=== PATIENT | male | born 2000 | race Asian ===

== ENCOUNTER 2023-08-30 12:24 | Emergency (ER) | payer OTHER ==
[~2023-08-30] VITALS: Ht 177.8 cm; Wt 99.3 kg
[2023-08-30] MEDS ORDERED: KETOROLAC 30 MG/ML 1ML VIAL IV ONE (13:00)
[2023-08-30] MEDS ORDERED: NS 1,000 ML IV ONE (13:00)
[2023-08-30 13:27] VITALS: TEMP 99.2
[2023-08-30 13:29] LABS: BASO # 0.1 10^3/uL (0.0-0.2); BASO % 0.7 % (0.0-1.0); EOS # 0.4 10^3/uL (0.0-0.5); EOS % 5.5 % (0.0-3.0); HEMOGLOBIN 15.2 g/dl (13.5-17.5); LYMPH # 2.1 10^3/uL (1.5-5.0); MEAN CORPUSCULAR HEMOGLOBIN 28.9 pg (27.0-33.0); MEAN CORPUSCULAR VOLUME 87.5 fl (80.0-96.0); MONO # 0.4 10^3/uL (0.0-0.8); MONO % 5.5 % (2.0-8.0); NEUTROPHILS # 3.8 10^3/uL (1.5-8.5); NEUTROPHILS % 56.6 % (36.0-66.0); PLATELET COUNT, AUTOMATED 167 10^3/uL (150-450); RED BLOOD COUNT 5.26 10^6/uL (4.30-6.10); WHITE BLOOD COUNT 6.8 10^3/uL (4.0-10.0)
[2023-08-30 13:40] LABS: INR 0.96; PROTHROMBIN TIME 12.5 SECONDS (12.5-14.5)
[2023-08-30 13:42] LABS: PARTIAL THROMBOPLASTIN TIME 30.9 SECONDS (24.8-34.2)
[2023-08-30] MEDS ORDERED: ISOVUE-370 76% 100ML VIAL As Ordered ONE (13:52)
[2023-08-30 13:53] LABS: BILIRUBIN,DIRECT 0.1 MG/DL (<0.4); BILIRUBIN,TOTAL 0.5 MG/DL (0.3-1.2); TOTAL PROTEIN 6.9 G/DL (5.7-8.2)
[2023-08-30 14:30] VITALS: BP 108/69; O2SAT 99
[2023-08-30] MEDS ORDERED: ANUSOL HC CREAM 30GM TOP ONE (14:50)
[2023-08-30] MEDS ORDERED: LIDOCAINE 2% JELLY 6ML SYRINGE TOP ONE (14:50)
[2023-08-30] MEDS ORDERED: PROC1CRE5 PR (14:54)
[2023-08-30] MEDS ORDERED: ANEC4CRE3 TOP (14:54)
[2023-08-30] MEDS ORDERED: COLA100C5 PO (14:56)
== END 2023-08-30 15:03 | disposition home or self-care (01) ==
LOC: M ED 12:24
DX: K64.8 Other hemorrhoids (principal); Z79.891 Long term (current) use of opiate analgesic; Z79.899 Other long term (current) drug therapy
CPT/HCPCS: 74177; 80047; 80076; 83690; 85025; 85610; 85730; 96361; 96374; 99284; J1885; Q9967